=== PATIENT | female | born 1960 | race Caucasian/White ===

== ENCOUNTER 2016-06-11 11:18 | Inpatient (IN) | payer BC ==
[~2016-06-11] VITALS: Ht 167.6 cm; Wt 120.0 kg
[~2016-06-11 11:18] MED LIST: AMLOPIDINE PO; DIOVAN 40MG40 MG; LITHIUM 30300 MG/CAP PO; LITHOBID 3300 MG/TAB PO; PERCOCET 325 MG1 TA2 PO; PERCOCET 5/321 UDTAB PO; PHENERGAN 25 TA25 MG PO; TENORMIN 5050 MG/TAB PO; ZOLOFT100 MG PO
[2016-07-07] VITALS (14 sets, daily range): BP systolic 123–173; BP diastolic 42–69; PULSE 37–75; TEMP 98–99
[2016-07-07] MEDS ORDERED: TENORMIN100 MG PO (10:37)
[2016-07-08] VITALS (7 sets, daily range): BP systolic 130–158; BP diastolic 43–68; PULSE 55–80; TEMP 98.2–99.1
[2016-07-08] MEDS ORDERED: ASPIRIN 32325 MG/TA1 PO (06:04)
[2016-07-08] MEDS ORDERED: NORCO 325 MG-7.1 TAB PO (06:04)
[2016-07-08] MEDS ORDERED: ULTRAM 50MG TAB50 MG PO (06:04)
[2016-07-08 06:17] LABS: HEMATOCRIT 34.3 % (37.0-47.0); HEMOGLOBIN 10.7 g/dl (12.5-16.0)
[2016-07-09 04:00] VITALS: BP 145/53; PULSE 72; TEMP 99.2
[2016-07-09 06:35] LABS: HEMATOCRIT 30.9 % (37.0-47.0); HEMOGLOBIN 9.7 g/dl (12.5-16.0)
[2016-07-09 07:26] VITALS: BP 150/54; PULSE 61; TEMP 98.9
[2016-07-09 11:18] VITALS: BP 129/59; PULSE 56; TEMP 98.3
[2016-07-09 15:44] VITALS: BP 160/69; PULSE 66; TEMP 98.1
[2016-07-09 20:27] VITALS: BP 144/45; PULSE 65; TEMP 99.4
[2016-07-10 00:21] VITALS: BP 117/43; PULSE 58; TEMP 99.2
[2016-07-10 05:09] VITALS: BP 141/60; PULSE 53; TEMP 97.2
[2016-07-10 08:26] VITALS: BP 118/60; PULSE 58; TEMP 98.2
== END 2016-07-10 11:05 | disposition home or self-care (01) | DRG 470 ==
LOC: JCC 07-07 05:08
PROVIDERS: Orthopaedic Surgery
PROC: 0SRB0JA Replacement of Left Hip Joint with Synthetic Substitute, Uncemented, Open Approach (ICD-10-PCS; principal; 2016-07-07 07:30)
DX: M16.12 Unilateral primary osteoarthritis, left hip (principal); I10 Essential (primary) hypertension
CPT/HCPCS: A4315; A9284; C1713; C1776; J0690; J1885; J2250; J2405; J2704; J7120

== ENCOUNTER → 2016-07-02 | Outpatient (CLI) | payer BC ==
[~2016-07-02] MED LIST changes: +ASPIRIN 32325 MG/TA1 PO; +NORCO 325 MG-7.1 TAB PO; +TENORMIN100 MG PO; +ULTRAM 50MG TAB50 MG PO
== END ==
LOC: COL.LAB 11:24
DX: Z01.818 Encounter for other preprocedural examination (principal); M16.12 Unilateral primary osteoarthritis, left hip

== ENCOUNTER 2019-04-01 10:53 | Day surgery (SDC) | payer BC ==
[~2019-04-01] VITALS: Ht 177.8 cm; Wt 154.0 kg
[2019-04-01] VITALS (12 sets, daily range): BP systolic 129–175; BP diastolic 62–90; PULSE 46–63; TEMP 98.9
[~2019-04-01 10:53] MED LIST changes: -AMLOPIDINE PO; +NORVASC 10MG10 MG PO; +ZOLOFT 100MG100 MG PO; -ZOLOFT100 MG PO
[2019-04-01] MEDS ORDERED: CATAPRES 0.1MG0.1 MG PO (11:28)
[2019-04-01] MEDS ORDERED: PRINIVIL20 MG PO (11:28)
[2019-04-01] MEDS ORDERED: PROAIR HFA0.09 MG/AC IH (11:29)
[2019-04-01] MEDS ORDERED: NORCO 325 MG-51 TAB PO (11:30)
[2019-04-01] MEDS ORDERED: PRIL40 PO (11:30)
[2019-04-01] MEDS ORDERED: ZANAFLEX2 MG PO (11:31)
[2019-04-01] MEDS ORDERED: LYSINE 500500 MG/TAB PO (11:32)
[2019-04-01 11:54] LABS: HEMATOCRIT 41.5 % (37.0-47.0); HEMOGLOBIN 13.1 g/dl (12.5-16.0); MEAN CELL VOLUME 90 fl (80.0-100.0); MEAN CORPUSCULAR HEMOGLOBIN 28 pg (27.0-31.0); MEAN CORPUSCULAR HGB CONC 32 g/dl (33.0-37.0); PLATELET COUNT 143 K/mm3 (130-400); RED BLOOD COUNT 4.63 M/mm3 (4.10-5.30); REDCELL DISTRIBUTION WIDTH-CV 13.6 % (11.5-14.5)
[2019-04-01 11:56] LABS: PROTHROMBIN TIME 11.2 SECONDS (9.7-12.8)
[2019-04-01 11:57] LABS: CALCIUM 9.7 mg/dL (8.4-10.2); CREATININE, serum 0.89 (0.52-1.25); POTASSIUM 4.2 mmol/L (3.4-5.0)
--- NOTE | 2019-04-01 12:56 | NUR ---
SEE MERGE FOR MEDICATION ADMINISTRATION TIMES AND INTRA AND POST SEDATION ASSESSMENTS.
--- NOTE | 2019-04-01 13:58 | NUR ---
Pt is back from cardiac cath technologist, pt is awake and alert, resting supine on stretcher. TR band in place to rt wrist, 13 ml instilled. small amt blood present under band, no bleeding or oozing at this time. no hematoma noted. cms intact distal. pt aware of plan to monitor site x 2 hours then start removing air from band. at bs.
--- NOTE | 2019-04-01 17:20 | NUR ---
PT has done well during recovery, no problem with bleeding or hematoma as air released from band, cms remains intact. pt has been ambulatory with steady gait, has been able to eat and drink. IV dc'd with cath intact. DC and f/u instructions reviewed with pt who denies questions or concerns at time of departure. she was escorted to exit via wheelchair, driving pt home.
== END 2019-04-01 17:20 | disposition home or self-care (01) ==
LOC: COL.CAR 10:53
PROVIDERS: Internal Medicine Interventional Cardiology
DX: R07.89 Other chest pain (principal); R94.39 Abnormal result of other cardiovascular function study; I10 Essential (primary) hypertension; E78.5 Hyperlipidemia, unspecified; Z90.710 Acquired absence of both cervix and uterus; Z90.49 Acquired absence of other specified parts of digestive tract; Z96.642 Presence of left artificial hip joint; Z82.49 Family history of ischemic heart disease and other diseases of the circulatory system; Z91.040 Latex allergy status
CPT/HCPCS: J1644; J2250; J3010; Q9967